=== PATIENT | male | born 1960 | race Caucasian/White ===

== ENCOUNTER 2018-02-25 09:58 | Emergency (ER) | payer MEDICAID ==
[2018-02-25] MEDS: KETOROLAC 30 MG INJ IM (11:38)
== END 2018-02-25 11:44 | disposition home or self-care (01) ==
LOC: FTE 09:58
DX: M79.601 Pain in right arm (principal); F17.210 Nicotine dependence, cigarettes, uncomplicated; M79.602 Pain in left arm
CPT/HCPCS: 96372; 99284-25